=== PATIENT | male | born 1955 | race Caucasian/White ===

== ENCOUNTER → 2023-10-05 | Outpatient (CLI) | payer MEDICARE ==
[2023-10-05 13:12] LABS: Appearance,Urine Clear (Clear); Bilirubin,Urine Negative (Negative); Blood,Urine Negative (Negative); Color,Urine Colorless; Glucose,Urine (UA) Negative (Negative); Ketones,Urine Negative (Negative); Leukocyte Esterase,Urine Negative (Negative); Nitrite,Urine Negative (Negative); Protein,Urine Negative (Negative); Specific Gravity,Urine 1.016 (1.001-1.035); Urobilinogen,Urine <2.0 mg/dL (<2.0)
[2023-10-06 03:03] LABS: Basophils # (A) 0.03 X 10*3/uL (0.00-0.10); Basophils % (A) 0.5 %; Eosinophils # (A) 0.26 X 10*3/uL (0.04-0.35); Eosinophils % (A) 4.4 %; HCT 44.8 % (39.6-50.0); HGB 14.8 g/dL (13.0-17.0); Lymphocytes # (A) 1.37 X 10*3/uL (0.90-5.00); MCH 30.5 pg (27.0-32.0); MCV 92.4 FL (80.0-97.0); Monocytes # (A) 0.48 X 10*3/uL (0.20-1.00); Monocytes % (A) 8.1 %; NRBC Per 100 WBC 0 X 10*3/uL (0.00-0.01); Neutrophils # (A) 3.81 X 10*3/uL (1.80-7.70); Neutrophils % (A) 63.8 %; Platelet Count 277 X 10*3/uL (140-440); RBC 4.85 X 10*6/uL (4.40-5.60); RDW 12.2 % (11.5-14.5); WBC 5.96 X 10*3/uL (4.50-10.00)
[2023-10-06 03:37] LABS: Chol/HDL Ratio 3.08 Ratio; VLDL Calculation 17.74 mg/dL (5.00-40.00)
[2023-10-06 03:38] LABS: ALT 22 U/L (10-49); AST 22 U/L (14-35); Albumin 4.5 g/dL (3.8-4.9); Albumin/Globulin Ratio 1.88 Ratio (1.60-3.17); Alkaline Phosphatase 47 U/L (41-126); Blood Urea Nitrogen 19.6 mg/dL (9.0-27.0); Calcium 9.9 mg/dL (8.7-10.3); Carbon Dioxide 23.4 mmol/L (21.6-31.8); Chloride 105 mmol/L (96-109); Globulin 2.4 g/dL (1.6-3.3); Glucose 105 mg/dL (70-110); LDL Cholesterol,Calculated 133.6 mg/dL (0.0-131.0); Potassium 4.6 mmol/L (3.5-5.5); Prostate Specific Antigen 1.85 ng/mL (0.000-4.500); Sodium 140 mmol/L (135-145); T4, Free (Free Thyroxine) 1.26 ng/dL (0.80-1.80); Total Bilirubin 0.3 mg/dL (0.3-1.2); Total Protein 6.9 g/dL (6.2-8.2); Uric Acid 5.6 mg/dL (3.7-8.7)
== END | disposition home or self-care (01) ==
LOC: LABWHC1 12:15
PROVIDERS: ATTEND Internal Medicine
DX: Z00.00 Encounter for general adult medical examination without abnormal findings (principal); Z12.5 Encounter for screening for malignant neoplasm of prostate; E55.9 Vitamin D deficiency, unspecified; R68.89 Other general symptoms and signs; R79.9 Abnormal finding of blood chemistry, unspecified; R53.83 Other fatigue; R39.15 Urgency of urination
CPT/HCPCS: 36415; 80053; 80061; 81003; 82306; 83036; 84153; 84403; 84439; 84443; 84550; 85025

== ENCOUNTER → 2024-12-05 | Outpatient (CLI) | payer MEDICARE ==
[2024-12-05 20:43] LABS: HCT 43.2 % (39.6-50.0); HGB 14.3 g/dL (13.0-17.0); MCH 30.6 pg (27.0-32.0); MCHC 33.1 g/dL (32.0-37.0); MCV 92.5 FL (80.0-97.0); NRBC Per 100 WBC 0 X 10*3/uL (0.00-0.01); Platelet Count 232 X 10*3/uL (140-440); RBC 4.67 X 10*6/uL (4.40-5.60); RDW 12.6 % (11.5-14.5); WBC 5.74 X 10*3/uL (4.50-10.00)
[2024-12-05 20:44] LABS: Basophils # (A) 0.04 X 10*3/uL (0.00-0.10); Basophils % (A) 0.7 %; Eosinophils # (A) 0.26 X 10*3/uL (0.04-0.35); Eosinophils % (A) 4.5 %; Immature Grans, Automated 0.30 %; Lymphocytes # (A) 1.53 X 10*3/uL (0.90-5.00); Lymphocytes % (A) 26.7 %; Monocytes # (A) 0.55 X 10*3/uL (0.20-1.00); Monocytes % (A) 9.6 %; Neutrophils # (A) 3.34 X 10*3/uL (1.80-7.70); Neutrophils % (A) 58.2 %
[2024-12-05 20:56] LABS: ALT 30 U/L (10-49); AST 27 U/L (14-35); Albumin 4.6 g/dL (3.8-4.9); Albumin/Globulin Ratio 2.19 Ratio (1.60-3.17); Alkaline Phosphatase 50 U/L (41-126); Anion Gap 11.30 mmol/L (4.00-12.00); BUN/Creat Ratio 19.33 Ratio (12.00-20.00); Blood Urea Nitrogen 17.4 mg/dL (9.0-27.0); Calcium 9.2 mg/dL (8.7-10.3); Carbon Dioxide 24.7 mmol/L (21.6-31.8); Chloride 104 mmol/L (96-109); Cholesterol 169.00 mg/dL (0.00-200.00); Globulin 2.1 g/dL (1.6-3.3); Glucose 97 mg/dL (70-110); HDL Cholesterol 86.00 mg/dL (40.00-60.00); LDL Cholesterol,Calculated 65.3 mg/dL (0.0-131.0); Potassium 4.0 mmol/L (3.5-5.5); Prostate Specific Antigen 1.89 ng/mL (0.000-6.500); Sodium 140 mmol/L (135-145); T4, Free (Free Thyroxine) 1.16 ng/dL (0.80-1.80); Total Protein 6.7 g/dL (6.2-8.2); Triglycerides 88.60 mg/dL (0.00-149.00); Uric Acid 4.3 mg/dL (3.7-8.7); VLDL Calculation 17.72 mg/dL (5.00-40.00)
[2024-12-05 21:41] LABS: Bilirubin,Urine Negative (Negative); Blood,Urine Negative (Negative); Color,Urine Yellow (Yellow); Ketones,Urine Negative (Negative); Nitrite,Urine Negative (Negative); PH, Urine 7.5; Specific Gravity,Urine 1.012 (1.001-1.030); Urobilinogen,Urine 0.2 E.U./DL
[2024-12-05 21:43] LABS: Bacteria,Urine None Seen (None Seen)
== END | disposition home or self-care (01) ==
LOC: LABWHC1 14:52
PROVIDERS: ATTEND Internal Medicine
DX: Z00.00 Encounter for general adult medical examination without abnormal findings (principal); Z12.5 Encounter for screening for malignant neoplasm of prostate; Z13.820 Encounter for screening for osteoporosis; E55.9 Vitamin D deficiency, unspecified; R68.89 Other general symptoms and signs; R53.83 Other fatigue; R79.9 Abnormal finding of blood chemistry, unspecified; R39.15 Urgency of urination
CPT/HCPCS: 36415; 80053; 80061; 81001; 82306; 83036; 84153; 84403; 84439; 84443; 84550; 85025